=== PATIENT | female | born 1975 | race Caucasian/White ===

== ENCOUNTER 2024-10-28 11:06 | Emergency (ER) | payer BC ==
[~2024-10-28] VITALS: Ht 165.1 cm; Wt 94.3 kg
[2024-10-28 11:48] LABS: HEMATOCRIT 42.4 % (37.0-47.0); MEAN CELL VOLUME 84.3 fl (81.0-99.0); MEAN CORPUSCULAR HGB CONC 34.4 g/dl (33.0-37.0); MEAN PLATELET VOLUME 9.8 fl (9.6-12.3); PLATELET COUNT AUTOMATED 133 10*3/uL (130-400); RED BLOOD COUNT 5.03 10*6/uL (4.10-5.10); WHITE BLOOD COUNT 3.1 10*3/uL (4.8-10.8)
[2024-10-28 11:57] LABS: MANUAL DIFF REFLEX YES
[2024-10-28 12:07] LABS: BUN 13 mg/dl (9-23); CHLORIDE 99 mmol/L (98-107); POTASSIUM 3.4 mmol/L (3.4-5.1)
[2024-10-28 12:20] LABS: BASOPHILS 1 % (0-1); TOTAL CELLS COUNTED 100 #CELLS
[2024-10-28 12:22] LABS: PLATELET SUFFICIENCY NORMAL (NORMAL)
[2024-10-28] MEDS ORDERED: ZITHROMAX250 MG PO (12:49)
[2024-10-28] MEDS ORDERED: AZITHROMYCIN 250 MG TAB PO ONE (12:50)
== END 2024-10-28 11:56 | disposition home or self-care (01) ==
LOC: ED 11:06
PROVIDERS: Nurse Practitioner Family
DX: J98.4 Other disorders of lung (principal); Z20.822 Contact with and (suspected) exposure to COVID-19; Z88.0 Allergy status to penicillin; Z88.8 Allergy status to other drugs, medicaments and biological substances

== ENCOUNTER → 2025-07-06 | Outpatient (CLI) | payer BC ==
[~2025-07-06] MED LIST: ZITHROMAX250 MG PO
== END | disposition home or self-care (01) ==
LOC: ORTHO 02:07
PROVIDERS: ATTEND Orthopaedic Surgery
DX: M25.562 Pain in left knee (principal)